=== PATIENT | male | born 2005 | race Two or more races ===

== ENCOUNTER 2023-03-18 16:42 | Inpatient (IN) | payer OTHER, SELFPAY ==
[2023-03-18 17:03] VITALS: BP 144/95; PULSE 95; RESP 16; TEMP 36.5; O2SAT 96
[2023-03-18 17:28] VITALS: BMI 37.3
[2023-03-18 18:00] VITALS: BP 146/69; PULSE 94; RESP 18; TEMP 36.5; O2SAT 98
--- NOTE | 2023-03-18 18:36 | PC.ADMIT ---
Delma, is a gender fluid 18yo individual who was admitted to the unit after presenting to the [facility] ED with suicidal ideation with multiple plans. During the intake the patient was alert and oriented with a relaxed affect and organized and forward focused thought process. Patient states that they were recently admitted to [facility] but was discharged without feeling better after requesting to be transferred from the hospital to another facility. Delma denies current SI, HI, or AVH but reports that they previously had suicidal thoughts as recently as a day ago, additionally states recent auditory hallucinations as recently as a day ago. Delma reports recent suicide attemp in September but would not elaborate on means/plan stating, I can't tell you otherwise I'll lose a plan Patient was participatory with intake process but expressed displeasure at the electronics policy and requested immediate transfer to a different facility, patient was able to refocus after discussion and signed a 3 day notices and was advised to speak with social work and provider regarding these concerns.
[2023-03-18] MEDS: ARIPiprazole 15 MG TABLET PO (21:03)
[2023-03-18] MEDS: Prazosin HCL 1 MG CAPSULE PO (21:03)
[2023-03-18] MEDS: lamoTRIgine 100 MG TABLET PO (21:03)
[2023-03-18] MEDS: traZODone HCL 50 MG TABLET PO (21:07)
[2023-03-19 08:10] VITALS: BP 123/80; PULSE 100; RESP 18; TEMP 36.7; O2SAT 96
[2023-03-19 08:40] LABS: Estimated Average Glucose 100 mg/dL; Hemoglobin A1c % 5.1 % (<6.0)
[2023-03-19 08:50] LABS: Alanine Aminotransferase 20 U/L (0-40); Albumin Level 4.1 g/dL (3.5-5.0); Alkaline Phosphatase 58 U/L (39-117); Anion Gap 10 (12-20); Aspartate Amino Transferase 20 U/L (5-37); Bilirubin Total 0.9 mg/dL (0.0-1.0); Blood Urea Nitrogen 12 mg/dL (9-16); Calcium 9.7 mg/dL (8.4-10.2); Carbon Dioxide 26 mmol/L (22-29); Chloride 108 mmol/L (96-108); Cholesterol 203 mg/dL (<200); Creatinine Clr Calc Pharmacy 172.2; Estimated Glomerular Filt Rate > 60; Glucose Fasting 86 mg/dL (60-99); HDL Cholesterol 36 mg/dL (>40); LDL Cholesterol Calculated 146 mg/dL (<100); Potassium 4.3 mmol/L (3.3-5.1); Sodium 140 mmol/L (135-145); Total Protein 6.7 g/dL (6.5-8.0); Triglycerides 105 mg/dL (<150)
[2023-03-19 09:04] LABS: Thyroid Stimulating Hormone 0.76 uIU/mL (0.32-4.0)
[2023-03-19 09:10] LABS: Vitamin B12 1263 pg/mL (200-900)
[2023-03-19] MEDS: Prazosin HCL 1 MG CAPSULE PO ×2 (09:18→21:52)
[2023-03-19] MEDS: lamoTRIgine 100 MG TABLET PO ×2 (09:18→21:52)
--- NOTE | 2023-03-19 09:27 | HO.PSYADMNOT ---
HPI Date of Service: 03/19/23 Chief Complaint: Major depressive d/o recurrent Sources of Information: patient interviewed, chart reviewed and crisis/core team assessment reviewed HPI Subjective Notes: Conditional Voluntary and 3 Day Narrative: Patient is a 18 year old gender fluid individual who self presented to ER d/t increase depression and suicidal ideation secondary to the weight of their best friends stress . Per crisis report, pt reported having multiple plans of suicide and was not willing to disclose the plans; they feel in constant emotional, physical and psychological pain . During admission assessment, pt presents calm and cooperative. They reports feeling anxious d/t not having their phone. Pt stated, I came to the hospital because I was feeling overwhelmed by my best friends mood who lives with me . They currently deny active suicidal ideation and stated, I have been chronically suicidal since the age of 9 after my sister's . I enjoy living. I'm creative, I have a large group of friends and a loving family. I just sometimes get overwhelmed . Patient does not want medications adjusted and stated, I enjoy the meds I'm on and feel like they help . Patient stated, I have lot of outpatient providers and don't feel like I need to be here. I was actively suicidal but I'm not anymore . Pt signed 3 day notice. Pt denies HI/VH/AH. Past Psychiatric History: Hx of past hospitalizations, most recently at [facility] in February 2023. Pt has outpatient therapist (Jimenez Garcia), [facility] (David Lala) [facility]. They report also having services through [facility]. Medical Evaluation Reviewed: Yes [facility] Family History: bipolar, schizophrenia, PTSD, anxiety, depression, ETOH abuse. Social History: Lives with family in [place]. Unemployed. No children. Substance History: denies Trauma History: Pt reports emotional, physical and mental. Diagnostics Vital Signs (24Hr): Vital Signs - 24 hr 03/18/23 17:03 03/18/23 18:00 Temperature 97.7 F 97.7 F Pulse Rate 95 94 Respiratory Rate 16 18 Blood Pressure 144/95 H 146/69 H Pulse Oximetry 96 98 Oxygen Delivery Method Room Air Room Air BMI result Body Mass Index 37.3 Labs 03/19/23 08:20 Labs: Laboratory Results - last 48 hr 03/19/23 08:20 Sodium 140 Potassium 4.3 Chloride 108 Carbon Dioxide 26 Anion Gap 10 L BUN 12 Creatinine 0.88 Estim Creat Clear Calc 172.2 Estimated GFR > 60 Fasting Glucose 86 Estimat Average Glucose 100 Hemoglobin A1c % 5.1 Calcium 9.7 Total Bilirubin 0.9 AST 20 ALT 20 Alkaline Phosphatase 58 Total Protein 6.7 Albumin 4.1 Triglycerides 105 Cholesterol 203 H LDL Cholesterol, Calc 146 H HDL Cholesterol 36 L Vitamin B12 1263 H TSH 0.76 Meds/Allergies Meds Home Medications Medication Instructions Recorded Confirmed Type aripiprazole 15 mg tablet 15 mg PO BEDTIME 03/18/23 03/18/23 History lamotrigine 100 mg tablet 100 mg PO BID 03/18/23 03/18/23 History prazosin 1 mg capsule 1 mg PO BID 03/18/23 03/18/23 History trazodone 50 mg tablet 50 mg PO BEDTIME PRN Insomnia 03/18/23 03/18/23 History Allergies Allergies Allergy/AdvReac Type Severity Reaction Status Date / Time No Known Allergies Allergy Verified 03/18/23 17:31 Mental Status Exam Mental Status Exam Narrative: Pt is alert and oriented; behavior is cooperative and calm; dressed in casual attire; mood is described as anxious ; eye contact appropriate; Speech is normal rate, volume and prosody and not pressured; no psychomotor agitation/retardation present; thought process is organized; Thought content is on discharge; otherwise pertinent to relevant topics and without any delusional content, paranoid ideations or grandiosity; denies HI. Pt reports chronic suicidal ideation, would not disclose plan. There is no evidence of perceptual disturbance. Patients insight and judgment are poor. Assessment & Plan Assessment & Plan (1) MDD (major depressive disorder), recurrent episode: Status: Acute Code(s): F33.9 - Major depressive disorder, recurrent, unspecified (2) PTSD (post-traumatic stress disorder): Status: Acute Code(s): F43.10 - Post-traumatic stress disorder, unspecified Plan Patient is a 18 year old gender fluid individual who self presented to ER d/t increase depression and suicidal ideation secondary to the weight of their best friends stress . Plan: 3 day notice 15 minute safety checks Continue home medications Obtain collateral Patient educated on: diagnosis, medication risk/benefits and therapeutic strategies Informed Consent: understands Reason for continued inpatient stay Substantial Risk for: harm to self and med/psych decompensation Statement Statement: I have reviewed the history and physical and performed a pertinent examination on my patient. No changes have occurred unless specified. If the History and Physical was not performed prior to admission, the Hospitalist's service will be consulted for completing the admission physical. Time Spent With Patient Time: Total time managing care of this patient today _60___ minutes.
--- NOTE | 2023-03-19 18:29 | HO.PM.IMCN ---
History of Present Illness Data of Consult Service Date: 03/19/23 Primary Care Provider: Unknown Physician HPI Reason for consult: Admission H&P Pt is a 18-year-old gender fluid individual with a PMH significant for?mild intermittent asthma, hypermobility syndrome, depression, anxiety, and borderline personality disorder who is admitted to [facility] psychiatry unit for increased depression with SI with plans that pt refuses to divulge. Patient has apparently been feeling overwhelmed by the stress and mood of their best friends. Medical consult for admission H&P. ?Patient complains of chronic joint pain, specifically there ankles and knees, that they associated with a hypermobility disorder. This pain has been ongoing for many years. Patient also reports a history of mild persistent asthma, states they use the rescue inhaler every 2-3 days. Otherwise patient has no acute medical complaints. Denies chest pain/pressure, palpitations. No shortness of breath or wheezing. Denies fever, chills, nausea, vomiting, diarrhea, abdominal pain. Labs reviewed, grossly unremarkable. Vital signs stable. Review of Systems Review of Systems: Chronic joint pain, especially ankles and knees Patient denies all other acute medical complaints [facility] Social History Household Members: Family Housing: House Do you presently have visiting nurse or other home services: No Patient Tobacco Use Status: Never used Tobacco Smoked in Last 30 Days: No Patient Interested in Nicotine Replacement: No Patient Given Instructions on How to Stop Smoking: No Use of substances other than those prescribed or required for medical reasons: Yes Substance Use Type: Marijuana Substance Use Frequency: Daily Last Used Substance: Just Prior to Admission Currently Displaying Signs/Symptoms of Drug Intoxication Withdrawal: No Any prior treatment program specific to substance use: No Have you been hit, kicked, punched, or otherwise hurt by someone within the past year? If so, by whom?: No Do you feel safe in your current relationship?: No Current Relationship Is there a partner from a previous relationship who is making you feel unsafe now?: No Are you made to feel afraid or neglected: No Spiritual Healthcare Practices: Tarot [employer] Anabaptism Healthcare Practices: Tarot Cards Cultural Healthcare Practices: None Advance Directives: No Advance Directives Information Provided: No Do you have thoughts of harming others: None Do you have a plan to hurt others: No Plan Recently lost weight without trying: No How much weight loss: Not applicable Eating poorly because of decreased appetite: No Nutrition screen score: 0 Nutrition Risks: No Nutritional Risk Poor oral hygiene: No service: No Sexual orientation: Don't Know Meds Allergies Allergy/AdvReac Type Severity Reaction Status Date / Time No Known Allergies Allergy Verified 03/18/23 17:31 Active Medications: Current Medications Acetaminophen (Acetaminophen 325 Mg Tablet) 650 mg PO Q6H PRN PRN Reason: Headache/Pain Mild Scale (1-3) Al Hydroxide/Mg Hydroxide (Magnesium Hydrox/Alum Hydrox 30 Ml Oral.Susp) 30 ml PO Q6H PRN PRN Reason: Heartburn/Nausea Aripiprazole (Aripiprazole 15 Mg Tablet) 15 mg PO BEDTIME [facility] Last Admin: 03/18/23 21:03 Dose: 15 mg Hydroxyzine HCl (Hydroxyzine Hcl 25 Mg Tablet) 25 mg PO Q6H PRN PRN Reason: Anxiety Lamotrigine (Lamotrigine 100 Mg Tablet) 100 mg PO BID [facility] Last Admin: 03/19/23 09:18 Dose: 100 mg Magnesium Hydroxide (Milk Of Magnesia 30 Ml Oral.Susp) 30 ml PO DAILY PRN PRN Reason: Constipation Prazosin HCl (Prazosin Hcl 1 Mg Capsule) 1 mg PO BID [facility]; Protocol Last Admin: 03/19/23 09:18 Dose: 1 mg Trazodone HCl (Trazodone Hcl 50 Mg Tablet) 50 mg PO BEDTIME PRN PRN Reason: Insomnia Home Medications Medication Instructions Recorded Confirmed Last Taken Type aripiprazole 15 mg tablet 15 mg PO BEDTIME 03/18/23 03/18/23 Unknown History lamotrigine 100 mg tablet 100 mg PO BID 03/18/23 03/18/23 Unknown History prazosin 1 mg capsule 1 mg PO BID 03/18/23 03/18/23 Unknown History trazodone 50 mg tablet 50 mg PO BEDTIME PRN Insomnia 03/18/23 03/18/23 Unknown History Physical Exam Vital Signs and Narrative: Vital Signs: Last Vital Signs Temp 98.1 F 03/19/23 08:10 Pulse 100 03/19/23 08:10 Resp 18 03/19/23 08:10 BP 123/80 03/19/23 08:10 Pulse Ox 96 03/19/23 08:10 O2 Del Method Room Air 03/19/23 08:10 BMI result Body Mass Index 37.3 General: AOx3, no acute distress Resp: CTA bilaterally CVS: S1, S2, RRR GI: +BS, NT, no distention Skin: Warm, dry Neuro: Cranial nerves II-XII grossly intact bilaterally. Motor grossly intact bilaterally Extremities: No edema Psych: Calm, cooperative Results Labs 03/19/23 08:20 Labs: Laboratory Results - last 24 hr 03/19/23 08:20 Anion Gap 10 L Estim Creat Clear Calc 172.2 Estimated GFR > 60 Fasting Glucose 86 Estimat Average Glucose 100 Hemoglobin A1c % 5.1 Calcium 9.7 Total Bilirubin 0.9 AST 20 ALT 20 Alkaline Phosphatase 58 Total Protein 6.7 Albumin 4.1 Triglycerides 105 Cholesterol 203 H LDL Cholesterol, Calc 146 H HDL Cholesterol 36 L Vitamin B12 1263 H TSH 0.76 Assessment and Plan (1) Routine history and physical examination of adult: Status: Acute Plan Pt is a 18-year-old gender fluid individual with a PMH significant for?mild intermittent asthma, hypermobility syndrome, depression, anxiety, and borderline personality disorder who is admitted to [facility] psychiatry unit for increased depression with SI with plans that pt refuses to divulge. Patient has apparently been feeling overwhelmed by the stress and mood of their best friends. Medical consult for admission H&P. Mood disorder Plan as per Psychiatry Chronic joint pain Patient has been experiencing pain in her ankles and knees and other joints for many years now, which they ascribed to a hypermobility disorder Encourage exercise, ambulation, stretching Acetaminophen for pain management Should follow up outpatient for long-term management Mild persistent asthma Not in acute exacerbation Does not appear to currently have an inhaler on med list Will prescribe albuterol rescue inhaler p.r.n. Thank you for allowing us to participate in the care of this patient. Signing off at this time. Please let us know if there are any acute complaints or questions. Time Spent With Patient Time: Total time managing care of this patient today ____ minutes.
[2023-03-19 20:10] VITALS: BP 129/74; PULSE 80; RESP 18; TEMP 36.4; O2SAT 97
[2023-03-19] MEDS: traZODone HCL 50 MG TABLET PO (21:51)
[2023-03-19] MEDS: ARIPiprazole 15 MG TABLET PO (21:52)
[2023-03-20] MEDS: Prazosin HCL 1 MG CAPSULE PO ×2 (09:32→20:56)
[2023-03-20] MEDS: lamoTRIgine 100 MG TABLET PO ×2 (09:32→20:56)
[2023-03-20 09:35] VITALS: BP 135/80; PULSE 103; RESP 18; TEMP 36.7; O2SAT 97
--- NOTE | 2023-03-20 16:31 | P.PNPSI_ITS ---
Subjective Subjective Date of Service: 03/20/23 Reason For Visit: Major depressive d/o recurrent Subjective Notes: 3 Day (expires 03/24) Medical Problems Affecting Mental Status: No Interim History: met with patient. Discussed with Nursing. Overall chronic SI and on 5 minutes checks. three-day notice submitted and electronics access mentioned as a potential reason. Today with senior medical writer reports overall feeling frustrated that therapist and mom strongly encouraged admission due to their concerns regarding suicidal thoughts. Reports that they have been suicidal since a young age. Also reported a recent admission to [facility] and discharged in the context of a three-day notice there i.e. understands three-day notice process. Denies suicidal plans or intent. Overall engaging with peers and seen playing Monopoly today. Medication Compliance: Yes Side effects from medications: No Attending Groups: Yes Review of Systems Acute medical concerns: No Review of Systems Review of Systems Unremarkable Mental Status Exam Mental Status Exam Narrative: Pt is alert and oriented; behavior is cooperative and calm; dressed in casual attire; mood is described as ok ; eye contact appropriate; Speech is normal rate, volume and prosody and not pressured; no psychomotor agitation/retardation present; thought process is organized; Thought content is on discharge; otherwise pertinent to relevant topics and without any delusional content, paranoid ideations or grandiosity; denies HI. Pt reports chronic suicidal ideation, denied plan. There is no evidence of perceptual disturbance. Patients insight and judgment are limited. Diagnostics Vital Signs (24Hr): Vital Signs - 24 hr 03/19/23 20:10 03/20/23 09:35 Temperature 97.6 F 98.1 F Pulse Rate 80 103 H Respiratory Rate 18 18 Blood Pressure 129/74 135/80 Pulse Oximetry 97 97 Oxygen Delivery Method Room Air Room Air BMI result Body Mass Index 37.3 Labs 03/19/23 08:20 Labs: Laboratory Results - last 48 hr 03/19/23 08:20 Sodium 140 Potassium 4.3 Chloride 108 Carbon Dioxide 26 Anion Gap 10 L BUN 12 Creatinine 0.88 Estim Creat Clear Calc 172.2 Estimated GFR > 60 Fasting Glucose 86 Estimat Average Glucose 100 Hemoglobin A1c % 5.1 Calcium 9.7 Total Bilirubin 0.9 AST 20 ALT 20 Alkaline Phosphatase 58 Total Protein 6.7 Albumin 4.1 Triglycerides 105 Cholesterol 203 H LDL Cholesterol, Calc 146 H HDL Cholesterol 36 L Vitamin B12 1263 H TSH 0.76 Medications Medications Current Medications Acetaminophen (Acetaminophen 325 Mg Tablet) 650 mg PO Q6H PRN PRN Reason: Headache/Pain Mild Scale (1-3) Al Hydroxide/Mg Hydroxide (Magnesium Hydrox/Alum Hydrox 30 Ml Oral.Susp) 30 ml PO Q6H PRN PRN Reason: Heartburn/Nausea Albuterol Sulfate (Albuterol Sulfate 90 Mcg 8 Gm Inhaler) 2 puff INHALE RQ4H PRN PRN Reason: Shortness of Breath/Wheezing Aripiprazole (Aripiprazole 15 Mg Tablet) 15 mg PO BEDTIME [facility] Last Admin: 03/19/23 21:52 Dose: 15 mg Hydroxyzine HCl (Hydroxyzine Hcl 25 Mg Tablet) 25 mg PO Q6H PRN PRN Reason: Anxiety Lamotrigine (Lamotrigine 100 Mg Tablet) 100 mg PO BID [facility] Last Admin: 03/20/23 09:32 Dose: 100 mg Magnesium Hydroxide (Milk Of Magnesia 30 Ml Oral.Susp) 30 ml PO DAILY PRN PRN Reason: Constipation Prazosin HCl (Prazosin Hcl 1 Mg Capsule) 1 mg PO BID [facility]; Protocol Last Admin: 03/20/23 09:32 Dose: 1 mg Trazodone HCl (Trazodone Hcl 50 Mg Tablet) 50 mg PO BEDTIME PRN PRN Reason: Insomnia Last Admin: 03/19/23 21:51 Dose: 50 mg Allergies Allergies Allergy/AdvReac Type Severity Reaction Status Date / Time No Known Allergies Allergy Verified 03/18/23 17:31 Assessment & Plan Assessment & Plan (1) PTSD (post-traumatic stress disorder): Status: Acute Code(s): F43.10 - Post-traumatic stress disorder, unspecified (2) MDD (major depressive disorder), recurrent episode: Status: Acute Code(s): F33.9 - Major depressive disorder, recurrent, unspecified Plan As per primary team: Patient is a 18 year old gender fluid individual who self presented to ER d/t increase depression and suicidal ideation secondary to the weight of their best friends stress . Plan: 3 day notice 15 minute safety checks Continue home medications Obtain collateral 03/20/2023: No changes to current plan Reason for continued inpatient stay Substantial Risk for: harm to self Time Spent With Patient Time: Total time managing care of this patient today ____ minutes.
[2023-03-20 20:00] VITALS: BP 139/69; PULSE 100; RESP 18; TEMP 36.6; O2SAT 96
[2023-03-20] MEDS: traZODone HCL 50 MG TABLET PO (20:56)
[2023-03-20] MEDS: ARIPiprazole 15 MG TABLET PO (20:56)
[2023-03-21] MEDS: lamoTRIgine 100 MG TABLET PO ×2 (09:19→21:22)
[2023-03-21] MEDS: Prazosin HCL 1 MG CAPSULE PO ×2 (09:19→21:22)
[2023-03-21 09:40] VITALS: BP 156/82; PULSE 102; RESP 18; TEMP 36.2; O2SAT 96
--- NOTE | 2023-03-21 16:32 | HO.PSYCHPN ---
Subjective Subjective Date of Service: 03/21/23 Reason For Visit: Major depressive d/o recurrent Interim History: met with patient. Discussed with Nursing. Overall chronic SI and on 5 minutes checks. Frustrated ref electroncis and remains eager for discharge- three-day notice expires 03/24/23. Denies suicidal plans or intent. Looking forward to discharge and being outside in nature. Overall engaging with peers. Medication Compliance: Yes Side effects from medications: No Attending Groups: Yes Review of Systems Acute medical concerns: No Review of Systems Review of Systems Unremarkable Mental Status Exam Mental Status Exam Narrative: Pt is alert and oriented; behavior is cooperative and calm; dressed in casual attire; mood is described as ok ; eye contact appropriate; Speech is normal rate, volume and prosody and not pressured; no psychomotor agitation/retardation present; thought process is organized; Thought content is organized. Pt reports chronic suicidal ideation, denied plan. There is no evidence of perceptual disturbance. No HI. Patients insight and judgment are limited. Diagnostics Vital Signs (24Hr): Vital Signs - 24 hr 03/20/23 20:00 03/21/23 09:40 Temperature 97.8 F 97.1 F Pulse Rate 100 102 H Respiratory Rate 18 18 Blood Pressure 139/69 156/82 H Pulse Oximetry 96 96 Oxygen Delivery Method Room Air Room Air BMI result Body Mass Index 37.3 Labs 03/19/23 08:20 Medications Medications Current Medications Acetaminophen (Acetaminophen 325 Mg Tablet) 650 mg PO Q6H PRN PRN Reason: Headache/Pain Mild Scale (1-3) Al Hydroxide/Mg Hydroxide (Magnesium Hydrox/Alum Hydrox 30 Ml Oral.Susp) 30 ml PO Q6H PRN PRN Reason: Heartburn/Nausea Albuterol Sulfate (Albuterol Sulfate 90 Mcg 8 Gm Inhaler) 2 puff INHALE RQ4H PRN PRN Reason: Shortness of Breath/Wheezing Aripiprazole (Aripiprazole 15 Mg Tablet) 15 mg PO BEDTIME [facility] Last Admin: 03/20/23 20:56 Dose: 15 mg Hydroxyzine HCl (Hydroxyzine Hcl 25 Mg Tablet) 25 mg PO Q6H PRN PRN Reason: Anxiety Lamotrigine (Lamotrigine 100 Mg Tablet) 100 mg PO BID [facility] Last Admin: 03/21/23 09:19 Dose: 100 mg Magnesium Hydroxide (Milk Of Magnesia 30 Ml Oral.Susp) 30 ml PO DAILY PRN PRN Reason: Constipation Prazosin HCl (Prazosin Hcl 1 Mg Capsule) 1 mg PO BID [facility]; Protocol Last Admin: 03/21/23 09:19 Dose: 1 mg Trazodone HCl (Trazodone Hcl 50 Mg Tablet) 50 mg PO BEDTIME PRN PRN Reason: Insomnia Last Admin: 03/20/23 20:56 Dose: 50 mg Allergies Allergies Allergy/AdvReac Type Severity Reaction Status Date / Time No Known Allergies Allergy Verified 03/18/23 17:31 Assessment & Plan Assessment & Plan (1) PTSD (post-traumatic stress disorder): Status: Acute Code(s): F43.10 - Post-traumatic stress disorder, unspecified (2) MDD (major depressive disorder), recurrent episode: Status: Acute Code(s): F33.9 - Major depressive disorder, recurrent, unspecified Plan As per primary team: Patient is a 18 year old gender fluid individual who self presented to ER d/t increase depression and suicidal ideation secondary to the weight of their best friends stress . Plan: 3 day notice 15 minute safety checks Continue home medications Obtain collateral 03/20/2023: No changes to current plan 03/21: no change to current plan Reason for continued inpatient stay Substantial Risk for: harm to self Time Spent With Patient Time: Total time managing care of this patient today ____ minutes.
[2023-03-21 18:00] VITALS: BP 136/91; PULSE 104; RESP 18; TEMP 37; O2SAT 97
[2023-03-21] MEDS: traZODone HCL 50 MG TABLET PO (21:23)
[2023-03-21] MEDS: Acetaminophen 325 MG TABLET 650 MG PO (21:23)
[2023-03-21] MEDS: ARIPiprazole 15 MG TABLET PO (21:23)
--- NOTE | 2023-03-22 00:06 | PC.NURSE ---
Tali BARNARD 'Zain' was noted to be visible on the unit in the evening. He is social with select peers, pleasant and cooperative upon approach. he is noted to have a brighter affect with better eye contact. he continues to endorse vague suicidal ideation but states that he is safe on the unit. he also endorses depression and anxiety both 5/10. he denies homicidal ideation and auditory/visual hallucinations. continue to monitor for safety, encourage groups, continue current Plan of Care
[2023-03-22] MEDS: Prazosin HCL 1 MG CAPSULE PO ×2 (09:26→21:10)
[2023-03-22] MEDS: lamoTRIgine 100 MG TABLET PO ×2 (09:26→21:11)
--- NOTE | 2023-03-22 09:42 | P.PNPSI_ITS ---
Subjective Subjective Date of Service: 03/22/23 Reason For Visit: Major depressive d/o recurrent Subjective Notes: 3 Day Interim History: Reviewed in team and Dr. Churchill. Pt reports having some anxiety and depression today. Pt stated, I'm liking the groups here . They reports passive suicidal ideation; pt stated, the thoughts are always there but it's not active or bothersome . Pt reports they do not want any referrals or refills on medications because my outpatient team takes care of that . 3 day due on 03/24/2023. Medication Compliance: Yes Side effects from medications: No Attending Groups: Yes Review of Systems Constitutional: Reports as per HPI Eyes: Reports as per HPI Reports as per HPI Cardiovascular: Reports as per HPI Respiratory: Reports as per HPI Gastrointestinal: Reports as per HPI Genitourinary: Reports as per HPI Musculoskeletal: Reports as per HPI Skin/Breast: Reports as per HPI Reports as per HPI Psychiatric: Reports as per HPI Endocrine: Reports as per HPI Hematologic/Lymphatic: Reports as per HPI Allergic/Immunologic: Reports as per HPI Mental Status Exam Mental Status Exam Narrative: Pt is alert and oriented; behavior is cooperative and calm; dressed in casual attire; mood is described as anxious ; eye contact appropriate; Speech is normal rate, volume and prosody and not pressured; no psychomotor agitation/retardation present; thought process is organized and goal directed; Thought content is on discharge; otherwise pertinent to relevant topics and without any delusional content, paranoid ideations or grandiosity; denies HI. Pt reports chronic passive SI with no plan. There is no evidence of perceptual disturbance. Patients insight and judgment are fair. Diagnostics Vital Signs (24Hr): Vital Signs - 24 hr 03/21/23 18:00 Temperature 98.6 F Pulse Rate 104 H Respiratory Rate 18 Blood Pressure 136/91 H Pulse Oximetry 97 Oxygen Delivery Method Room Air BMI result Body Mass Index 37.3 Labs 03/19/23 08:20 Medications Medications Current Medications Acetaminophen (Acetaminophen 325 Mg Tablet) 650 mg PO Q6H PRN PRN Reason: Headache/Pain Mild Scale (1-3) Last Admin: 03/21/23 21:23 Dose: 650 mg Al Hydroxide/Mg Hydroxide (Magnesium Hydrox/Alum Hydrox 30 Ml Oral.Susp) 30 ml PO Q6H PRN PRN Reason: Heartburn/Nausea Albuterol Sulfate (Albuterol Sulfate 90 Mcg 8 Gm Inhaler) 2 puff INHALE RQ4H PRN PRN Reason: Shortness of Breath/Wheezing Aripiprazole (Aripiprazole 15 Mg Tablet) 15 mg PO BEDTIME BONNIE Last Admin: 03/21/23 21:23 Dose: 15 mg Hydroxyzine HCl (Hydroxyzine Hcl 25 Mg Tablet) 25 mg PO Q6H PRN PRN Reason: Anxiety Lamotrigine (Lamotrigine 100 Mg Tablet) 100 mg PO BID BONNIE Last Admin: 03/22/23 09:26 Dose: 100 mg Magnesium Hydroxide (Milk Of Magnesia 30 Ml Oral.Susp) 30 ml PO DAILY PRN PRN Reason: Constipation Prazosin HCl (Prazosin Hcl 1 Mg Capsule) 1 mg PO BID [facility]; Protocol Last Admin: 03/22/23 09:26 Dose: 1 mg Trazodone HCl (Trazodone Hcl 50 Mg Tablet) 50 mg PO BEDTIME PRN PRN Reason: Insomnia Last Admin: 03/21/23 21:23 Dose: 50 mg Allergies Allergies Allergy/AdvReac Type Severity Reaction Status Date / Time No Known Allergies Allergy Verified 03/18/23 17:31 Assessment & Plan Assessment & Plan (1) PTSD (post-traumatic stress disorder): Status: Acute Code(s): F43.10 - Post-traumatic stress disorder, unspecified (2) MDD (major depressive disorder), recurrent episode: Status: Acute Code(s): F33.9 - Major depressive disorder, recurrent, unspecified Plan As per primary team: Patient is a 18 year old gender fluid individual who self presented to ER d/t increase depression and suicidal ideation secondary to the weight of their best friends stress . Plan: 3 day notice 15 minute safety checks Continue home medications Obtain collateral 03/20: No changes to current plan 03/21: no change to current plan 03/22: Pt reports having some anxiety and depression today. Pt stated, I'm liking the groups here . They reports passive suicidal ideation; pt stated, the thoughts are always there but it's not active or bothersome . Pt reports they do not want any referrals or refills on medications because my outpatient team takes care of that . 3 day due on 03/24/2023. Continue current tx plan. Patient educated on: diagnosis, medication risk/benefits and therapeutic strategies Informed Consent: understands Reason for continued inpatient stay Substantial Risk for: med/psych decompensation Time Spent With Patient Time: Total time managing care of this patient today _30___ minutes.
[2023-03-22 09:53] VITALS: BP 139/89; PULSE 96; RESP 18; TEMP 36.7; O2SAT 95
[2023-03-22 18:00] VITALS: BP 133/76; PULSE 105; RESP 18; TEMP 36.9; O2SAT 97
[2023-03-22] MEDS: Acetaminophen 325 MG TABLET 650 MG PO (21:10)
[2023-03-22] MEDS: ARIPiprazole 15 MG TABLET PO (21:11)
[2023-03-22] MEDS: traZODone HCL 50 MG TABLET PO ×2 (21:11→22:40)
[2023-03-23 06:00] VITALS: BP 138/90; PULSE 90; RESP 16; TEMP 36.5; O2SAT 98
[2023-03-23] MEDS: Prazosin HCL 1 MG CAPSULE PO (09:33)
[2023-03-23] MEDS: lamoTRIgine 100 MG TABLET PO (09:33)
--- NOTE | 2023-03-23 11:03 | PM.PSYDC ---
DS: Providers Provider Date of Service: 03/23/23 Date of admission: 03/18/23 16:42 Date of discharge: 03/23/23 Primary care physician: Unknown Physician Admitting clinician: Katherine Stuart Attending physician on admission: Silas Churchill Consults: 03/18/23 17:55 Consult to Hospitalist Routine Comment: Consulting Provider: Hospitalist Reason For Exam: medical H&P Attending physician on discharge: Silas Churchill Discharging clinician: Katherine Stuart DS: Diagnosis Discharge Diagnosis (1) PTSD (post-traumatic stress disorder): Status: Acute (2) MDD (major depressive disorder), recurrent episode: Status: Acute DS: Medications Discharge Medications Home Medications: Home Medications Medication Instructions Recorded Confirmed aripiprazole 15 mg tablet 15 mg PO BEDTIME 03/18/23 03/18/23 lamotrigine 100 mg tablet 100 mg PO BID 03/18/23 03/18/23 prazosin 1 mg capsule 1 mg PO BID 03/18/23 03/18/23 trazodone 50 mg tablet 50 mg PO BEDTIME PRN Insomnia 03/18/23 03/18/23 Mental Status Exam Mental Status Exam Narrative: Pt is alert and oriented; behavior is cooperative, friendly and calm; dressed in casual attire; mood is described as good ; eye contact appropriate; Speech is normal rate, volume and prosody and not pressured; no psychomotor agitation/retardation present; thought process is organized and goal directed; Thought content is on tx; otherwise pertinent to relevant topics and without any delusional content, paranoid ideations or grandiosity; denies SI/HI. There is no evidence of perceptual disturbance. Patients insight and judgment are fair. Data Data Completed and Pending Completed studies during hospitalization [Text1]: 03/19/23 08:20 Sodium 140 Potassium 4.3 Chloride 108 Carbon Dioxide 26 Anion Gap 10 L BUN 12 Creatinine 0.88 Estim Creat Clear Calc 172.2 Estimated GFR > 60 Fasting Glucose 86 Estimat Average Glucose 100 Hemoglobin A1c % 5.1 Calcium 9.7 Total Bilirubin 0.9 AST 20 ALT 20 Alkaline Phosphatase 58 Total Protein 6.7 Albumin 4.1 Triglycerides 105 Cholesterol 203 H LDL Cholesterol, Calc 146 H HDL Cholesterol 36 L Vitamin B12 1263 H TSH 0.76 DS: Summary Hospital Course Hospital Course: Patient is a 18 year old gender fluid individual who self presented to ER d/t increase depression and suicidal ideation secondary to the weight of their best friends stress . Per crisis report, pt reported having multiple plans of suicide and was not willing to disclose the plans; they feel in constant emotional, physical and psychological pain . During admission assessment, pt presents calm and cooperative. They reports feeling anxious d/t not having their phone. Pt stated, I came to the hospital because I was feeling overwhelmed by my best friends mood who lives with me . They currently deny active suicidal ideation and stated, I have been chronically suicidal since the age of 9 after my sister's . I enjoy living. I'm creative, I have a large group of friends and a loving family. I just sometimes get overwhelmed . Patient does not want medications adjusted and stated, I enjoy the meds I'm on and feel like they help . Patient stated, I have lot of outpatient providers and don't feel like I need to be here. I was actively suicidal but I'm not anymore . Pt signed 3 day notice. Pt denies HI/VH/AH. Patient was continued on home medications. Pt reports having some anxiety and depression today. Pt stated, I'm liking the groups here . They reports passive suicidal ideation; pt stated, the thoughts are always there but it's not active or bothersome . Pt reports they do not want any referrals or refills on medications because my outpatient team takes care of that . Patient reports feeling better today. Patient stated, I would really like to go home and follow up with my outpatient providers. If I get stressed out again, I would just come to the hospital or call my providers . Pt denies SI/HI/VH/AH. Plans on returning home and following up with outpatient psychiatric providers. Time spent discussing smoking cessation with patient: 3 to 10 minutes Status at Discharge Cognitive/behavioral status at discharge: Patient was interviewed prior to discharge and found to be fully oriented and without any SI or HI. Patient has insight and demonstrates good judgment in terms of wanting to pursue treatment. Patient is not in imminent risk of harm to self or others and has a safety plan that includes presenting to the closest ER or calling 911 if feeling unsafe. Patient has been observed closely by nursing and unit staff throughout admission; patient has not engaged in any behaviors that suggest dangerousness to self or others and has demonstrated appropriate behaviors and impulse control. Functional status at discharge: independent ambulation Overall status at discharge: patient is back to baseline Time Spent with Patient Time attestation: Total time managing care of this patient today _30___ minutes. Time spent: Less than 30 minutes Discharge Plan Discharge Anticipated Discharge Date/Time: 03/23/23 12:00 Patient Disposition: Home, Self-Care Discharge Diagnosis: MDD, PTSD Referrals: Marcia Whelan (Psychiatry) [Other] - 03/30/23 2:45 pm (IN OFFICE APPOINTMENT) Jimenez Garcia (Therapy) [Other] - 03/24/23 4:00 pm Jeferson Tong MD [Physician] - 1 Week (PCP will call you directly to schedule an appointment) Discharge Medications: Continued trazodone 50 mg tablet 50 mg PO BEDTIME PRN (Reason: Insomnia) prazosin 1 mg capsule 1 mg PO BID lamotrigine 100 mg tablet 100 mg PO BID aripiprazole 15 mg tablet 15 mg PO BEDTIME Discharge Orders: Discharge Order (Routine); Ordered 03/23/23 Ordered By: Katherine Stuart Diet: Regular diet Activity on Discharge: As tolerated Stand Alone Forms: Patient Portal Discharge page, Community Support Care Plan Goals: Maintain mood and safe behaviors Take medications as prescribed Practice coping skills Continue with outpatient providers and reach out to them as needed Health Concerns: Mood stability and behaviors Plan of Treatment: Follow up with your PCP, psychiatric provider and other outpatient providers regarding above concerns Take medications as prescribed Assessment: Patient was interviewed prior to discharge and found to be fully oriented and without any SI or HI. Patient has insight and demonstrates good judgment in terms of wanting to pursue treatment. Patient is not in imminent risk of harm to self or others and has a safety plan that includes presenting to the closest ER or calling 911 if feeling unsafe. Patient has been observed closely by nursing and unit staff throughout admission; patient has not engaged in any behaviors that suggest dangerousness to self or others and has demonstrated appropriate behaviors and impulse control. Discharge Date/Time: 03/23/23 11:55
== END 2023-03-23 11:55 | disposition home or self-care (01) | DRG 885 ==
PROVIDERS: Social Worker; Admitting Provider Psychiatry & Neurology Psychiatry; Responsible Provider Registered Nurse; Visit Provider Psychiatry & Neurology Psychiatry
DX: F33.9 Major depressive disorder, recurrent, unspecified (principal); R45.851 Suicidal ideations; F43.10 Post-traumatic stress disorder, unspecified; M35.7 Hypermobility syndrome; J45.20 Mild intermittent asthma, uncomplicated; Z79.899 Other long term (current) drug therapy
CPT/HCPCS: 36415; 80053; 80061; 82607; 83036; 84443

== ENCOUNTER → 2023-03-18 16:42 | Outpatient (BNV) | payer OTHER, SELFPAY | PROVIDERS: Admitting Provider Psychiatry & Neurology Psychiatry; Responsible Provider Registered Nurse; Visit Provider Psychiatry & Neurology Psychiatry | DX: F43.11 Post-traumatic stress disorder, acute (principal); F33.2 Major depressive disorder, recurrent severe without psychotic features | CPT/HCPCS: 99238 ==

== ENCOUNTER → 2023-03-18 16:42 | Outpatient (BNV) | payer OTHER, SELFPAY | PROVIDERS: Admitting Provider Psychiatry & Neurology Psychiatry; Responsible Provider Registered Nurse; Visit Provider Psychiatry & Neurology Psychiatry | DX: F43.11 Post-traumatic stress disorder, acute (principal); F33.2 Major depressive disorder, recurrent severe without psychotic features | CPT/HCPCS: 90792; 99231 ==

== ENCOUNTER → 2023-03-18 16:42 | Outpatient (BNV) | payer OTHER, SELFPAY | PROVIDERS: Admitting Provider Psychiatry & Neurology Psychiatry; Responsible Provider Registered Nurse; Visit Provider Student in an Organized Health Care Education/Training Program | DX: Z02.2 Encounter for examination for admission to residential institution (principal) | CPT/HCPCS: 99429 ==